=== PATIENT | male | born 1970 | race African-American/Black ===

== ENCOUNTER 2018-03-26 15:12 | Emergency (ER) | payer OTHER ==
[~2018-03-26] VITALS: Ht 182.9 cm; Wt 114.1 kg
[~2018-03-26 15:12] MED LIST: FLEXERIL 1010 MG/TAB PO; NORCO 325 MG-51 TAB PO; PREDNISONE20 MG PO
[2018-03-26 15:25] VITALS: BP 132/84; TEMP 98.5
[2018-03-26 17:40] VITALS: PULSE 78
== END 2018-03-26 17:41 | disposition home or self-care (01) ==
LOC: COL.ER 15:12
DX: S00.93XA Contusion of unspecified part of head, initial encounter (principal); S70.01XA Contusion of right hip, initial encounter; F32.9 Major depressive disorder, single episode, unspecified; Z87.39 Personal history of other diseases of the musculoskeletal system and connective tissue; V53.5XXA Driver of pick-up truck or van injured in collision with car, pick-up truck or van in traffic accident, initial encounter